=== PATIENT | female | born 1935 | race Caucasian/White ===

== ENCOUNTER → 2016-11-29 | Outpatient (CLI) | payer MEDICARE | END | disposition home or self-care (01) | LOC: CFH 10:23 | PROVIDERS: ATTEND Family Medicine | DX: I67.82 Cerebral ischemia (principal); R90.82 White matter disease, unspecified | CPT/HCPCS: 70551 ==

== ENCOUNTER 2019-05-02 16:43 | Inpatient (IN) | payer MEDICARE ==
[~2019-05-02] VITALS: Ht 165.1 cm; Wt 55.5 kg
[~2019-05-02 16:43] MED LIST: DOCU-145 BC; FLUO40CA2 PO; LEVO50TA5 PO; PRIM250T34 PO
[2019-05-02] MEDS ORDERED: LORA-446 PO (17:35)
[2019-05-02] MEDS ORDERED: TRAM50TA2 PO (17:35)
[2019-05-02] MEDS ORDERED: MELA1TAB19 SL (17:35)
[2019-05-02] MEDS ORDERED: BUSP5TAB2 PO (17:35)
[2019-05-02] MEDS ORDERED: PROPANOLOL PO (17:35)
[2019-05-02] MEDS ORDERED: FAMO10TA31 PO (17:35)
[2019-05-02] MEDS ORDERED: HYDR-3240 PO (17:35)
[2019-05-02] MEDS ORDERED: SODIUM CHLORIDE FLUSH 10ML SYR IVF ONE (18:00)
--- NOTE | 2019-05-02 18:05 | NUR ---
pt upright on gurney awake & comfortable at rest, responds approp to staff, comfort measures provided, daughter at BS, call light within reach.
[2019-05-02 18:22] LABS: BASOPHILS # (AUTO) 0.03 x10^3/uL (0-0.1); BASOPHILS % (AUTO) 0 % (0-1); EOSINOPHILS # (AUTO) 0.07 x10^3/uL (0-0.4); EOSINOPHILS % (AUTO) 1 % (1-7); LYMPHOCYTES # (AUTO) 0.94 x10^3/uL (1-3.4); LYMPHOCYTES % (AUTO) 9 % (22-44); MD NO; MEAN CORPUSCULAR HEMOGLOBIN 34.5 pg (27.0-34.8); MEAN CORPUSCULAR HGB CONC 33.1 g/dL (32.4-35.8); MEAN CORPUSCULAR VOLUME 104.2 fL (80-100); MEAN PLATELET VOLUME 7.3 fL (7.4-10.4); MONOCYTES # (AUTO) 1.11 x10^3/uL (0.2-0.8); MONOCYTES % (AUTO) 11 % (2-9); NEUTROPHILS # (AUTO) 8.25 x10^3/uL (1.8-6.8); NEUTROPHILS % (AUTO) 79 % (42-75); PLATELET COUNT 326 x10^3/uL (130-400); RED BLOOD COUNT 3.55 x10^6/uL (3.82-5.3)
[2019-05-02 18:27] LABS: ANION GAP 10 mmol/L (5-15); CALCIUM 8.7 mg/dL (8.5-10.1); CHLORIDE 104 mmol/L (98-107); CREATININE 0.52 mg/dL (0.55-1.02)
[2019-05-02 18:28] LABS: INTERNATIONAL NORMALIZED RATIO 1.07 (0.93-1.1); PROTHROMBIN TIME 11.2 Seconds (9.6-11.5)
--- NOTE | 2019-05-02 19:10 | NUR ---
report given to Otis
--- NOTE | 2019-05-02 19:12 | NUR ---
Received report, assumed patient care. Introduced self to patient, patient asked to go to the bathroom. Assisted patient from gurney to wheelchair, wheelchair to toilet per patients preference to not use bed melendrez. Informed of urinalysis ordered. Patient verbalized unable to complete clean catch. Agreeable to nonclean catch sample.
--- NOTE | 2019-05-02 19:22 | NUR ---
Assisted back into [facility]. technical services analyst to bedside. Patient out of room to imaging.
--- NOTE | 2019-05-02 19:38 | NUR ---
Back from Ct.
[2019-05-02] MEDS ORDERED: OMNIPAQUE 350 MG/ML, 100ML BOTTLE ONE (19:45)
[2019-05-02 20:08] LABS: MICROSCOPIC AUTO
[2019-05-02 20:15] LABS: CULTURE INDICATED? YES
[2019-05-02] MEDS ORDERED: CEFTRIAXONE PMX 1GM/50ML 50 ML IV ONE (20:30)
[2019-05-02] MEDS ORDERED: CEFTRIAXONE PMX 1GM/50ML 50 ML ONE (20:36)
[2019-05-02] MEDS ORDERED: ONDANSETRON 2MG/ML, 2ML IVPush PRN (22:00)
[2019-05-02] MEDS ORDERED: BISACODYL 10 MG SUPP PR PRN (22:00)
[2019-05-02 22:03] VITALS: BP 170/73
[2019-05-02] MEDS: morphine SULFATE 10 MG/ML, 1ML IVPush PRN (22:38)
[2019-05-03 00:30] VITALS: BP 158/96
[2019-05-03] MEDS: LORazepam 1MG TABLET PO PRN ×3 (00:33→20:40)
[2019-05-03] MEDS: morphine SULFATE 10 MG/ML, 1ML IVPush PRN ×3 (00:58→08:33)
[2019-05-03] MEDS: LEVOTHYROXINE 50 MCG TABLET PO SCH (05:33)
[2019-05-03] MEDS: LIDODERM 5% PATCH TD PRN ×2 (05:46→09:56)
[2019-05-03 06:44] VITALS: BP 171/84
[2019-05-03] MEDS: BUSPIRONE 5 MG TABLET PO SCH ×2 (08:32→20:39)
[2019-05-03] MEDS: PROPRANOLOL 40 MG TABLET PO SCH ×2 (08:32→20:40)
[2019-05-03] MEDS: FLUOXETINE HCL 20 MG CAPSULE PO SCH (08:32)
[2019-05-03] MEDS: SENNA/DOCUSATE TABLET PO SCH (08:32)
[2019-05-03 13:21] VITALS: BP 179/109
[2019-05-03] MEDS: OXYcodone/APAP 5/325MG TABLET PO PRN (15:29)
[2019-05-03 19:09] VITALS: BP 162/83
[2019-05-03] MEDS: CEFTRIAXONE PMX 1GM/50ML 50 ML IV SCH (20:43)
[2019-05-04 01:23] VITALS: BP 175/81
[2019-05-04 05:15] VITALS: BP 184/80
[2019-05-04 05:24] LABS: BASOPHILS # (AUTO) 0.03 x10^3/uL (0-0.1); BASOPHILS % (AUTO) 0 % (0-1); EOSINOPHILS # (AUTO) 0.15 x10^3/uL (0-0.4); EOSINOPHILS % (AUTO) 2 % (1-7); LYMPHOCYTES # (AUTO) 0.65 x10^3/uL (1-3.4); LYMPHOCYTES % (AUTO) 7 % (22-44); MD NO; MEAN CORPUSCULAR HEMOGLOBIN 34.1 pg (27.0-34.8); MEAN CORPUSCULAR HGB CONC 33.5 g/dL (32.4-35.8); MEAN PLATELET VOLUME 6.9 fL (7.4-10.4); MONOCYTES # (AUTO) 0.97 x10^3/uL (0.2-0.8); MONOCYTES % (AUTO) 10 % (2-9); NEUTROPHILS # (AUTO) 8.19 x10^3/uL (1.8-6.8); NEUTROPHILS % (AUTO) 82 % (42-75); PLATELET COUNT 328 x10^3/uL (130-400); RED BLOOD COUNT 3.82 x10^6/uL (3.82-5.3); RED CELL DISTRIBUTION WIDTH 14.3 % (9.6-15.2)
[2019-05-04] MEDS: LEVOTHYROXINE 50 MCG TABLET PO SCH (05:26)
[2019-05-04] MEDS: LORazepam 1MG TABLET PO PRN ×3 (05:28→23:18)
[2019-05-04] MEDS ORDERED: hydrALAzine 20 MG/ML, 1ML IV ONE (05:30)
[2019-05-04 05:41] LABS: CHLORIDE 101 mmol/L (98-107)
[2019-05-04 05:45] LABS: ANION GAP 10 mmol/L (5-15); CALCIUM 8.8 mg/dL (8.5-10.1); CREATININE 0.51 mg/dL (0.55-1.02)
[2019-05-04] MEDS: morphine SULFATE 10 MG/ML, 1ML IVPush PRN ×2 (05:56→18:21)
[2019-05-04 06:02] LABS: TROPONIN I < 0.015 ng/mL (0.000-0.045)
[2019-05-04 07:12] VITALS: BP 150/84
[2019-05-04] MEDS: BUSPIRONE 5 MG TABLET PO SCH ×2 (08:43→21:41)
[2019-05-04] MEDS: PROPRANOLOL 40 MG TABLET PO SCH ×2 (08:43→21:42)
[2019-05-04] MEDS: FLUOXETINE HCL 20 MG CAPSULE PO SCH (08:43)
[2019-05-04] MEDS: POLYETHYLENE GLYCOL 17 GM PACKET PO PRN (08:43)
[2019-05-04] MEDS: SENNA/DOCUSATE TABLET PO SCH (08:44)
[2019-05-04] MEDS: OXYcodone/APAP 5/325MG TABLET PO PRN ×2 (12:34→21:45)
[2019-05-04 13:11] VITALS: BP 131/78
[2019-05-04 19:32] VITALS: BP 146/82
[2019-05-04] MEDS: CEFTRIAXONE PMX 1GM/50ML 50 ML IV SCH (21:41)
[2019-05-05 01:48] VITALS: BP 169/81
[2019-05-05] MEDS: LEVOTHYROXINE 50 MCG TABLET PO SCH (05:23)
[2019-05-05 06:32] VITALS: BP 159/85
[2019-05-05] MEDS: OXYcodone/APAP 5/325MG TABLET PO PRN ×3 (06:35→20:58)
[2019-05-05] MEDS: PROPRANOLOL 40 MG TABLET PO SCH ×2 (07:43→20:57)
[2019-05-05] MEDS: LORazepam 1MG TABLET PO PRN ×3 (07:44→22:22)
[2019-05-05] MEDS: SENNA/DOCUSATE TABLET PO SCH (07:45)
[2019-05-05] MEDS: FLUOXETINE HCL 20 MG CAPSULE PO SCH (07:46)
[2019-05-05] MEDS: POLYETHYLENE GLYCOL 17 GM PACKET PO PRN (07:47)
[2019-05-05] MEDS: BUSPIRONE 5 MG TABLET PO SCH ×2 (07:47→20:58)
[2019-05-05 08:00] VITALS: BP 158/89
[2019-05-05] MEDS: LIDODERM 5% PATCH TD PRN (09:08)
[2019-05-05 13:15] VITALS: BP 109/70
[2019-05-05 19:12] VITALS: BP 141/79
[2019-05-05] MEDS: CEFTRIAXONE PMX 1GM/50ML 50 ML IV SCH (20:57)
[2019-05-06 03:23] VITALS: BP 133/77
[2019-05-06] MEDS: LEVOTHYROXINE 50 MCG TABLET PO SCH (05:35)
[2019-05-06] MEDS: OXYcodone/APAP 5/325MG TABLET PO PRN ×3 (05:36→22:11)
[2019-05-06 07:15] VITALS: BP 167/82
[2019-05-06] MEDS: SENNA/DOCUSATE TABLET PO SCH (08:14)
[2019-05-06] MEDS: FLUOXETINE HCL 20 MG CAPSULE PO SCH (08:14)
[2019-05-06] MEDS: BUSPIRONE 5 MG TABLET PO SCH ×2 (08:14→20:25)
[2019-05-06] MEDS: PROPRANOLOL 40 MG TABLET PO SCH ×2 (08:14→20:24)
[2019-05-06 12:10] VITALS: BP 168/81
[2019-05-06] MEDS: LORazepam 1MG TABLET PO PRN ×2 (13:15→22:11)
[2019-05-06] MEDS: POLYETHYLENE GLYCOL 17 GM PACKET PO PRN (13:42)
[2019-05-06] MEDS: ACETAMINOPHEN 325 MG TABLET PO PRN (18:09)
[2019-05-06 18:55] VITALS: BP 122/69
[2019-05-06] MEDS: CEFTRIAXONE PMX 1GM/50ML 50 ML IV SCH (20:26)
[2019-05-06 22:20] VITALS: BP 140/72
[2019-05-06] MEDS: morphine SULFATE 10 MG/ML, 1ML IVPush PRN (22:33)
[2019-05-07 01:30] VITALS: BP 135/69
[2019-05-07] MEDS: LEVOTHYROXINE 50 MCG TABLET PO SCH (05:15)
[2019-05-07 06:42] VITALS: BP 148/79
[2019-05-07] MEDS: LORazepam 1MG TABLET PO PRN ×2 (07:27→13:35)
[2019-05-07] MEDS: OXYcodone/APAP 5/325MG TABLET PO PRN ×3 (07:28→21:09)
[2019-05-07] MEDS: PROPRANOLOL 40 MG TABLET PO SCH ×2 (08:26→20:05)
[2019-05-07] MEDS: SENNA/DOCUSATE TABLET PO SCH (08:26)
[2019-05-07] MEDS: FLUOXETINE HCL 20 MG CAPSULE PO SCH (08:26)
[2019-05-07] MEDS: BUSPIRONE 5 MG TABLET PO SCH ×2 (08:26→20:08)
[2019-05-07 12:03] VITALS: BP 155/83
[2019-05-07 19:40] VITALS: BP 155/80
[2019-05-07] MEDS: CEFTRIAXONE PMX 1GM/50ML 50 ML IV SCH (20:05)
[2019-05-08 01:07] VITALS: BP 158/79
[2019-05-08] MEDS: LORazepam 1MG TABLET PO PRN (01:16)
[2019-05-08] MEDS: OXYcodone/APAP 5/325MG TABLET PO PRN ×2 (01:17→14:39)
[2019-05-08] MEDS: LEVOTHYROXINE 50 MCG TABLET PO SCH (05:49)
[2019-05-08 07:17] VITALS: BP 158/84
[2019-05-08] MEDS: BUSPIRONE 5 MG TABLET PO SCH (08:52)
[2019-05-08] MEDS: FLUOXETINE HCL 20 MG CAPSULE PO SCH (08:52)
[2019-05-08] MEDS: ACETAMINOPHEN 325 MG TABLET PO PRN (08:53)
[2019-05-08] MEDS: SENNA/DOCUSATE TABLET PO SCH (08:53)
[2019-05-08] MEDS: PROPRANOLOL 40 MG TABLET PO SCH (08:53)
[2019-05-08 13:05] VITALS: BP 136/75
[2019-05-08] MEDS ORDERED: CEFD300C37 PO (14:06)
[2019-05-08] MEDS ORDERED: SENN-193 PO (14:06)
[2019-05-08 16:13] VITALS: BP 159/76
== END 2019-05-08 16:45 | DRG 536 ==
LOC: ED 20:42 → EDIP 20:51 → 3N 21:56
PROVIDERS: ADMIT Family Medicine; ATTEND Family Medicine
DX: S32.512A Fracture of superior rim of left pubis, initial encounter for closed fracture (principal); E87.1 Hypo-osmolality and hyponatremia; E44.0 Moderate protein-calorie malnutrition; N30.00 Acute cystitis without hematuria; B96.20 Unspecified Escherichia coli [E. coli] as the cause of diseases classified elsewhere; E03.9 Hypothyroidism, unspecified; F03.90 Unspecified dementia, unspecified severity, without behavioral disturbance, psychotic disturbance, mood disturbance, and anxiety; F32.9 Major depressive disorder, single episode, unspecified; F41.9 Anxiety disorder, unspecified; G25.0 Essential tremor; I10 Essential (primary) hypertension; K59.09 Other constipation; M54.41 Lumbago with sciatica, right side; Z66 Do not resuscitate; W18.30XA Fall on same level, unspecified, initial encounter; Y93.89 Activity, other specified; Y92.89 Other specified places as the place of occurrence of the external cause; Z87.891 Personal history of nicotine dependence; Z82.49 Family history of ischemic heart disease and other diseases of the circulatory system; Z74.01 Bed confinement status; Z68.20 Body mass index [BMI] 20.0-20.9, adult; Y99.8 Other external cause status
CPT/HCPCS: 36415; 72195; 74177; 80048; 81001; 82040; 83735; 84484; 85025; 85610; 86038; 87077; 87086; 87186; 93005; 99285; G0378; J0696; J2405; Q9967; J0360; J2270